=== PATIENT | male | born 1970 | race Caucasian/White ===

== ENCOUNTER 2016-12-07 11:38 | Emergency (ER) | payer MEDICAID ==
--- NOTE | 2016-12-07 11:56 | ED Physician Documentation ---
PD HPI ABD PAIN - Stated complaint Stated Complaint: ABD PX - Chief complaint Chief Complaint: Abd Pain - History obtained from History obtained from: Patient - History of Present Illness Timing - onset: How many days ago (4) Timing - duration: Days Timing - details: Abrupt onset, Still present, Waxing and waning Quality: Aching, Sharp, Pain Location: RLQ Radiation: Right flank Improved by: No: Eating Worsened by: Position, Palpation, Other (walking and hitting bumps, etc.). No: Eating, Moving, Breathing Associated symptoms: Nausea, Vomiting (couple of times with worse pain), Loss of appetite. No: Fever, Dysuria, Hematuria, Chest pain Similar symptoms before: Diagnosis (kidney stone in the past) Recently seen: Not recently seen Review of Systems Constitutional: denies: Fever, Chills Nose: denies: Rhinorrhea / runny nose, Congestion Throat: denies: Sore throat Cardiac: denies: Chest pain / pressure Respiratory: denies: Dyspnea, Cough GI: reports: Abdominal Pain, Nausea. denies: Constipation, Diarrhea : denies: Dysuria, Frequency, Discharge PD PAST MEDICAL HISTORY - Past Medical History Cardiovascular: None Respiratory: None Neuro: None Endocrine/Autoimmune: None GI: None : Kidney stones - Past Surgical History Past Surgical History: No - Present Medications Home Medications: Ambulatory Orders Medication Instructions Recorded Confirmed Naproxen [Naprosyn] 500 mg PO BID #20 tablet 12/07/16 Ondansetron HCl [Zofran] 4 mg PO Q6H PRN #20 tablet 12/07/16 Oxycodone HCl/Acetaminophen 1 - 2 each PO Q6H PRN #30 tablet 12/07/16 [Percocet 5-325 mg Tablet] Tamsulosin [Flomax] 0.4 mg PO DAILY #7 capsule 12/07/16 - Allergies Allergies/Adverse Reactions: Allergies Allergy/AdvReac Type Severity Reaction Status Date / Time No Known Drug Allergies Allergy Verified 11/02/15 12:36 - Social History Does the pt smoke?: No Smoking Status: Never smoker Does the pt drink ETOH?: No Does the pt have substance abuse?: No - Immunizations Immunizations are current?: Yes PD ED PE NORMAL - Vitals Vital signs reviewed: Yes - General General: Alert and oriented X 3, Well developed/nourished - HEENT HEENT: Pharynx benign - Neck Neck: Supple, no meningeal sign, No adenopathy - Cardiac Cardiac: RRR - Respiratory Respiratory: No respiratory distress, Clear bilaterally - Abdomen Abdomen: Normal bowel sounds, Soft, Non distended, Other (tender RLQ with some guarding and percussion tender) - Male Male : Other (no hernia noted) - Rectal Rectal: Deferred - Back Back: Other (moderate right CVA tender) - Derm Derm: Normal color, Warm and dry - Extremities Extremities: No tenderness to palpate, Normal ROM s pain - Neuro Neuro: Alert and oriented X 3, No motor deficit, Normal speech Results - Vitals Vitals: Vital Signs - 24 hr 12/07/16 12/07/16 12/07/16 11:54 13:26 14:39 Temperature 36.6 C Heart Rate 77 76 72 Respiratory 16 16 18 Rate Blood Pressure 157/105 H 154/96 H 154/99 H O2 Saturation 97 96 95 Oxygen O2 Source Room air - Labs Labs: Laboratory Tests 12/07/16 12/07/16 12/07/16 12:35 12:46 12:46 WBC 11.0 H RBC 5.48 Hgb 14.6 Hct 43.7 MCV 79.7 L MCH 26.6 L MCHC 33.4 RDW 14.5 Plt Count 180 MPV 9.0 Neut # 8.2 H Lymph # 1.8 [place] # 0.7 Eos # 0.3 Baso # 0.1 Absolute Nucleated RBC 0.01 Nucleated RBCs 0.1 Sodium 138 Potassium 3.5 Chloride 104 Carbon Dioxide 27 Anion Gap 7.0 BUN 12 Creatinine 0.9 Estimated GFR (MDRD) 92 Glucose 108 H Calcium 9.3 Total Bilirubin 1.4 H AST 22 ALT 26 Alkaline Phosphatase 57 Total Protein 7.8 Albumin 4.3 Globulin 3.5 Albumin/Globulin Ratio 1.2 Lipase 20 L Urine Color YELLOW Urine Clarity CLEAR Urine pH 6.0 Ur Specific [place] 1.015 Urine Protein TRACE Urine Glucose (UA) NEGATIVE Urine Ketones NEGATIVE Urine Occult Blood LARGE H Urine Nitrite NEGATIVE Urine Bilirubin NEGATIVE Urine Urobilinogen 0.2 (NORMAL) Ur Leukocyte Esterase NEGATIVE Urine RBC 6-10 H Urine WBC 0-3 Ur Squamous Epith Cells NONE SEEN Urine Bacteria None Seen Ur Microscopic Review INDICATED Urine Culture Comments NOT INDICATED - Rads (name of study) KUB CT Radiology: Prelim report reviewed, EMP read contemporaneously (8 mm stone right proximal ureter with moderate obstruction. Normal appendix.) PD MEDICAL DECISION MAKING - ED course Complexity details: reviewed results, re-evaluated patient (improved enough with pain meds here in ED. Feels comfortable enough to head home. ), considered differential, d/w patient, d/w business analyst consultant (Urology in [place], who will see patient in next couple of days. ) Departure - Departure Disposition: Home, Self Care Clinical Impression: Ureterolithiasis, Right sided abdominal pain Condition: Stable Record reviewed to determine appropriate education?: Yes Instructions: ED Stone Renal W Colic Prescriptions: Tamsulosin [Flomax] 0.4 mg PO DAILY #7 capsule Naproxen [Naprosyn] 500 mg PO BID #20 tablet Oxycodone HCl/Acetaminophen [Percocet 5-325 mg Tablet] 1 - 2 each PO Q6H PRN # 30 tablet PRN Reason: Pain Ondansetron HCl [Zofran] 4 mg PO Q6H PRN #20 tablet PRN Reason: Nausea / Vomiting Comments: Call [facility] [facility] [phone] for an appt with available Urologist (Dr. Talbert was sourcing consultant, but can be with any of them). Take Naproxen twice daily for pain. Tamsulosin daily to help try to relax the ureter. Zofran if needed for nausea. Percocet for pain. Follow up with Urology a their next available appt, or the timing that they give you. Return if severe pain again. Discharge Date/Time: 12/07/16 14:40
[2016-12-07] MEDS ORDERED: ONDANSETRON 4 MG/2 ML VIAL IVP STA (12:21)
[2016-12-07] MEDS ORDERED: HYDROmorphone 1 MG/ML SYRINGE IVP STA (12:21)
[2016-12-07] MEDS ORDERED: SODIUM CHLORIDE 0.9% 1,000 ML IV ONE (12:21)
[2016-12-07] MEDS ORDERED: HYDROmorphone 1 MG/ML SYRINGE ONE (12:27)
[2016-12-07] MEDS ORDERED: ONDANSETRON 4 MG/2 ML VIAL ONE (12:27)
[2016-12-07 12:55] LABS: BASOPHILS # (AUTO) 0.1 10^3/uL (0.0-0.1); BASOPHILS % (AUTO) 0.7 %; EOSINOPHILS # (AUTO) 0.3 10^3/uL (0.0-0.7); EOSINOPHILS % (AUTO) 2.5 %; HCT - HEMATOCRIT 43.7 % (42.0-52.0); HGB - HEMOGLOBIN 14.6 g/dL (14.0-18.0); LYMPHOCYTES # (AUTO) 1.8 10^3/uL (1.5-3.5); LYMPHOCYTES % (AUTO) 16.2 %; MEAN CORPUSCULAR HEMOGLOBIN 26.6 pg (27.0-31.0); MEAN CORPUSCULAR HGB CONC 33.4 g/dL (32.0-36.0); MEAN CORPUSCULAR VOLUME 79.7 fL (80.0-94.0); MONOCYTES # (AUTO) 0.7 10^3/uL (0.0-1.0); MONOCYTES % (AUTO) 6.4 %; NEUTROPHILS # (AUTO) 8.2 10^3/uL (1.5-6.6); NEUTROPHILS % (AUTO) 74.2 %; NUCLEATED RED BLOOD CELLS AUTO 0.1 /100WBC; RED BLOOD COUNT 5.48 10^6/uL (4.70-6.10); RED CELL DISTRIBUTION WIDTH 14.5 % (12.0-15.0)
[2016-12-07 13:03] LABS: BILIRUBIN,URINE NEGATIVE (NEGATIVE)
[2016-12-07 13:07] LABS: ALBUMIN/GLOBULIN RATIO 1.2 (1.0-2.2); BILIRUBIN,TOTAL 1.4 mg/dL (0.2-1.0); CALCIUM 9.3 mg/dL (8.5-10.3); CREATININE 0.9 mg/dL (0.6-1.2); POTASSIUM 3.5 mmol/L (3.5-5.0); TOTAL PROTEIN 7.8 g/dL (6.7-8.2)
[2016-12-07 13:10] LABS: UA w/ MICROSCOPIC CHARGE YES
[2016-12-07 13:11] LABS: UR CULTURE IF IND NOT INDICATED; WBC,URINE 0-3 /HPF (0-3)
[2016-12-07] MEDS ORDERED: KETOROLAC 60 MG/2 ML VIAL IVP STA (13:45)
[2016-12-07] MEDS ORDERED: KETOROLAC 30 MG/ML VIAL ONE (13:47)
--- NOTE | 2016-12-07 13:55 | CT Preliminary Report ---
Exam: CT KUB Impression: 8mm obstructing stone within the right proximal ureter. At least 3 nonobstructing calculi within the left kidney. [facility] SITE ID: [id number]
--- NOTE | 2016-12-07 13:58 | CT Report ---
EXAM: CT ABDOMEN AND PELVIS (CT KUB) EXAM DATE: 12/07/2016 01:19 PM. CLINICAL HISTORY: Right abd/flank pain for 2-3 days. COMPARISONS: None. TECHNIQUE: Routine axial helical CT imaging was performed through the abdomen and pelvis without IV c ontrast. Reconstructions: Coronal and sagittal. In accordance with CT protocol optimization, one or more of the following dose reduction techniques w ere utilized for this exam: automated exposure control, adjustment of mA and/or KV based on patient s ize, or use of iterative reconstructive technique. FINDINGS: The lung bases are without evidence of a mass or infiltrate. The liver, spleen, pancreas, and adrenal glands demonstrate a normal noncontrast CT appearance. There is a 8 mm calculus in the right proximal ureter causing mild hydronephrosis, mild proximal hydrouret er and mild perinephric fat stranding. At least 3 nonobstructing calculi are noted within the left kidney. The largest measures 8 mm (image 73 of series 5). There is no left-sided hydroureter. No bladder calculi are identified. The appendix is normal in appearance. There are no dilated loops of bowel to suggest the presence of an obstructio n. A few small diverticuli are seen involving the sigmoid colon. There is no fat stranding or fluid c ollection to suggest the presence of diverticulitis. There are degenerative changes of the thoracic a nd lumbar spine. Impression: 8mm obstructing stone within the right proximal ureter. At least 3 nonobstructing calculi within the left kidney. [facility] Referring Provider Line: [phone] SITE ID: [id number]
[2016-12-07 14:39] VITALS: BP 154/99
== END 2016-12-07 14:40 | disposition home or self-care (01) ==
LOC: ED 11:38
DX: N20.1 Calculus of ureter (principal); R10.11 Right upper quadrant pain
CPT/HCPCS: 36415; 74176; 80053; 81001; 83690; 85025; 96374; 96375; 99283; 99284; J1170; 81003; 87086

== ENCOUNTER 2017-09-12 13:29 | Outpatient (CLI) | payer MEDICAID | END 2017-09-12 13:30 | disposition home or self-care (01) | LOC: SC 13:29 | PROVIDERS: ATTEND Internal Medicine Pulmonary Disease | DX: G47.33 Obstructive sleep apnea (adult) (pediatric) (principal) | CPT/HCPCS: 99203; 99212 ==

== ENCOUNTER 2017-11-09 22:12 | Outpatient (CLI) | payer MEDICAID | END 2017-11-09 22:13 | disposition home or self-care (01) | LOC: SC 22:12 | PROVIDERS: ATTEND Internal Medicine Pulmonary Disease | DX: G47.33 Obstructive sleep apnea (adult) (pediatric) (principal); G47.61 Periodic limb movement disorder; R00.1 Bradycardia, unspecified | CPT/HCPCS: 95811 ==

== ENCOUNTER 2017-12-13 09:08 | Outpatient (CLI) | payer MEDICAID | END 2017-12-13 09:09 | disposition home or self-care (01) | LOC: SC 09:08 | PROVIDERS: ATTEND Nurse Practitioner Family | DX: G47.33 Obstructive sleep apnea (adult) (pediatric) (principal); G47.61 Periodic limb movement disorder; R00.1 Bradycardia, unspecified | CPT/HCPCS: 99212; 99215 ==

== ENCOUNTER 2018-02-26 14:55 | Outpatient (CLI) | payer MEDICAID | END 2018-02-26 14:56 | disposition home or self-care (01) | LOC: SC 14:55 | PROVIDERS: ATTEND Nurse Practitioner Family | DX: G47.33 Obstructive sleep apnea (adult) (pediatric) (principal) | CPT/HCPCS: 99212; 99214 ==

== ENCOUNTER 2019-09-09 13:51 | Outpatient (CLI) | payer OTHER | END 2019-09-09 13:52 | disposition home or self-care (01) | LOC: COV 13:51 | PROVIDERS: ATTEND Family Medicine | DX: R50.9 Fever, unspecified (principal) | CPT/HCPCS: 81599 ==

== ENCOUNTER 2019-11-25 07:20 | Outpatient (CLI) | payer OTHER ==
[2019-11-25 15:36] LABS: BASOPHILS # (AUTO) 0.1 10^3/uL (0.0-0.1); BASOPHILS % (AUTO) 0.6 %; EOSINOPHILS # (AUTO) 0.4 10^3/uL (0.0-0.7); EOSINOPHILS % (AUTO) 4.7 %; HGB - HEMOGLOBIN 15.3 g/dL (14.0-18.0); LYMPHOCYTES # (AUTO) 1.5 10^3/uL (1.5-3.5); LYMPHOCYTES % (AUTO) 18.9 %; MEAN CORPUSCULAR HEMOGLOBIN 27.5 pg (27.0-31.0); MEAN CORPUSCULAR HGB CONC 32.1 g/dL (32.0-36.0); MEAN CORPUSCULAR VOLUME 85.6 fL (80.0-94.0); MEAN PLATELET VOLUME 11.7 fL (7.4-11.4); MONOCYTES # (AUTO) 0.5 10^3/uL (0.0-1.0); MONOCYTES % (AUTO) 6.7 %; NEUTROPHILS # (AUTO) 5.3 10^3/uL (1.5-6.6); NEUTROPHILS % (AUTO) 68.7 %; PLT - PLATELET COUNT 199 10^3/uL (130-450); RED BLOOD COUNT 5.56 10^6/uL (4.70-6.10); RED CELL DISTRIBUTION WIDTH 14.2 % (12.0-15.0); WHITE BLOOD COUNT 7.7 x10^3/uL (4.8-10.8)
[2019-11-25 15:49] LABS: ALBUMIN 4.6 g/dL (3.2-5.5); ALBUMIN/GLOBULIN RATIO 1.3 (1.0-2.2); ALKALINE PHOSPHATASE 61 IU/L (42-121); ALT ALANINE AMINOTRANSFERASE 18 IU/L (10-60); AST ASPARTATE AMINOTRANSFERASE 17 IU/L (10-42); BUN - BLOOD UREA NITROGEN 12 mg/dL (6-20); CALCIUM 9.5 mg/dL (8.5-10.3); CARBON DIOXIDE - CO2 29 mmol/L (21-32); CHLORIDE 102 mmol/L (101-111); CHOL/HDL RATIO 3.6 (<5.0); CHOLESTEROL 128 mg/dL; CREATININE 0.9 mg/dL (0.6-1.2); GLUCOSE 95 mg/dL (70-100); HDL CHOLESTEROL 36 mg/dL; LDL CHOLESTEROL,CALCULATED 76 mg/dL; LDL/HDL RATIO 2.1 (<3.6); SODIUM 140 mmol/L (135-145); TOTAL PROTEIN 8.1 g/dL (6.7-8.2); VLDL CHOLESTEROL 16 mg/dL
== END 2019-11-25 07:21 | disposition home or self-care (01) ==
LOC: LAB.S 07:20
PROVIDERS: ATTEND Registered Nurse
DX: I10 Essential (primary) hypertension (principal); G47.33 Obstructive sleep apnea (adult) (pediatric); F41.8 Other specified anxiety disorders; Z87.442 Personal history of urinary calculi; F90.0 Attention-deficit hyperactivity disorder, predominantly inattentive type; E66.01 Morbid (severe) obesity due to excess calories
CPT/HCPCS: 36415; 80053; 80061; 83721; 84443; 85025

== ENCOUNTER 2019-12-03 17:21 | Outpatient (CLI) | payer OTHER ==
[2019-12-03 17:27] LABS: MUDS CUTOFF CONCENTRATIONS CUTOFF CONC BELOW:
[2019-12-03 20:12] LABS: AMPHETAMINE SCREEN,URINE POSITIVE (NEGATIVE); BENZODIAZEPINES SCREEN, URINE NEGATIVE (NEGATIVE); COCAINE SCREEN URINE NEGATIVE (NEGATIVE); METHADONE SCREEN, URINE NEGATIVE (NEGATIVE); METHAMPHETAMINES SCREEN, URINE NEGATIVE (NEGATIVE); OPIATE SCREEN, URINE NEGATIVE (NEGATIVE); OXYCODONE SCREEN, URINE NEGATIVE (NEGATIVE); PROPOXYPHENE SCREEN, URINE NEGATIVE (NEGATIVE); TRICYCLIC ANTIDEPRESSANT,URINE NEGATIVE (NEGATIVE)
== END 2019-12-03 17:22 | disposition home or self-care (01) ==
LOC: LAB.S 17:21
PROVIDERS: ATTEND Registered Nurse
DX: Z79.899 Other long term (current) drug therapy (principal)
CPT/HCPCS: 80306

== ENCOUNTER 2020-05-28 08:00 | Outpatient (CLI) | payer OTHER ==
[2020-05-28 17:46] LABS: MUDS CUTOFF CONCENTRATIONS CUTOFF CONC BELOW:
[2020-05-28 18:03] LABS: AMPHETAMINE SCREEN,URINE POSITIVE (NEGATIVE); BENZODIAZEPINES SCREEN, URINE POSITIVE (NEGATIVE); COCAINE SCREEN URINE NEGATIVE (NEGATIVE); METHADONE SCREEN, URINE NEGATIVE (NEGATIVE); METHAMPHETAMINES SCREEN, URINE NEGATIVE (NEGATIVE); OPIATE SCREEN, URINE NEGATIVE (NEGATIVE); OXYCODONE SCREEN, URINE NEGATIVE (NEGATIVE); PROPOXYPHENE SCREEN, URINE NEGATIVE (NEGATIVE); TRICYCLIC ANTIDEPRESSANT,URINE NEGATIVE (NEGATIVE)
== END 2020-05-28 23:59 | disposition home or self-care (01) ==
LOC: LAB.R 08:00
PROVIDERS: ATTEND Registered Nurse
DX: Z79.899 Other long term (current) drug therapy (principal)
CPT/HCPCS: 80306

== ENCOUNTER 2021-01-07 09:37 | Emergency (ER) | payer OTHER ==
--- NOTE | 2021-01-07 10:43 | ED Physician Documentation ---
PD HPI MALE - Stated complaint Stated Complaint: UNABLE TO URINATE - Chief complaint Chief Complaint: Abd Pain - History obtained from History obtained from: Patient - Additional information Additional information: Patient comes emergency department chief complaint of urinary retention that started yesterday evening. 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 He states he has a history of benign prostatic hypertrophy and that from time to time he does retain urine. He states he urinated before going to bed last night but since then, has not been able to produce any urine. States he has had some pressure in the suprapubic area. No other complaints at this time. Review of Systems Ten Systems: 10 systems reviewed and negative Constitutional: reports: Reviewed and negative Eyes: reports: Reviewed and negative Ears: reports: Reviewed and negative Nose: reports: Reviewed and negative Throat: reports: Reviewed and negative Cardiac: reports: Reviewed and negative Respiratory: reports: Reviewed and negative GI: reports: Reviewed and negative : reports: Unable to Void, Incontinent (Mild dribbling on and off). denies: Dysuria, Frequency Skin: reports: Reviewed and negative Musculoskeletal: reports: Reviewed and negative Neurologic: reports: Reviewed and negative Psychiatric: reports: Reviewed and negative Endocrine: reports: Reviewed and negative Immunocompromised: reports: Reviewed and negative PD PAST MEDICAL HISTORY - Past Medical History Past Medical History: Yes Cardiovascular: Hypertension Respiratory: None Endocrine/Autoimmune: None GI: None : Kidney stones Musculoskeletal: Gout - Past Surgical History Past Surgical History: No - Present Medications Home Medications: Ambulatory Orders Medication Instructions Recorded Confirmed Lisdexamfetamine Dimesylate 70 mg PO DAILY 01/07/21 01/07/21 [Vyvanse] Lisinopril [Zestril] 20 mg PO DAILY 01/07/21 01/07/21 - Allergies Allergies/Adverse Reactions: Allergies Allergy/AdvReac Type Severity Reaction Status Date / Time No Known Drug Allergies Allergy Verified 01/07/21 09:52 - Social History Does the pt smoke?: No Smoking Status: Never smoker Does the pt drink ETOH?: No Does the pt have substance abuse?: No - Immunizations Immunizations are current?: Yes PD ED PE NORMAL - Vitals Vital signs reviewed: Yes - General General: Alert and oriented X 3, No acute distress, Well developed/nourished - HEENT HEENT: Atraumatic, PERRL, EOMI, Moist mucous membranes - Neck Neck: Supple, no meningeal sign - Respiratory Respiratory: No respiratory distress - Abdomen Abdomen: Soft, Non distended, Other (Mild suprapubic tenderness and fullness.) - Male Male : Other (Very firm mass noted in the patient's glands, surrounding the urethral area. Nonmobile. Daily passes with some discomfort and difficulty and yellow, cloudy urine is obtained) - Derm Derm: Normal color, Warm and dry, No rash - Extremities Extremities: No deformity, No edema - Neuro Neuro: Alert and oriented X 3 - Psych Psych: Normal mood, Normal affect Results - Vitals Vitals: Vital Signs - 24 hr 01/07/21 01/07/21 09:42 11:30 Temperature 36.3 C L 37.1 C Heart Rate 96 85 Respiratory 16 16 Rate Blood Pressure 145/91 H 143/96 H O2 Saturation 100 98 Oxygen O2 Source Room air - Labs Labs: Laboratory Tests 01/07/21 10:39 Urine Color YELLOW Urine Clarity CLOUDY Urine pH 7.5 Ur Specific [place] 1.020 Urine Protein TRACE Urine Glucose (UA) NEGATIVE Urine Ketones NEGATIVE Urine Occult Blood SMALL H Urine Nitrite NEGATIVE Urine Bilirubin NEGATIVE Urine Urobilinogen 0.2 (NORMAL) Ur Leukocyte Esterase SMALL H Urine RBC 6-10 H Urine WBC 6-10 H Ur Squamous Epith Cells MOD Squamous H Urine Crystals 11-25 Triple Phos Amorphous Sediment Few Urine Bacteria Moderate H Ur Microscopic Review INDICATED Urine Culture Comments NOT INDICATED PD MEDICAL DECISION MAKING - ED course Complexity details: reviewed results, re-evaluated patient, d/w patient ED course: Coud Espinoza was placed without bloody residue and urinalysis was sent. I did assist the nurse in placing the catheter, and found that it was initially hard to pass through the firm mass at the distal end of pt's penis. However, cathete r passed, and mass seemed to dissipate. Once in the bladder, about 100 cc of yellow, sediment-laden urine was obtained, then flow stopped. Pt felt that he still had a fairly full bladder, and scan had showed >200cc. Catheter was slowly withdrawn, and found to be clogged with copious sand-like sediment. Pt was then able to urinate. Mass at penile tip had completely resolved, and pt was able to urinate, so catheter was not replaced. I suspected the "mass" was a collection of the sediment, which had been blocking the way. I have recommended that the pt follow up with urology. Departure - Departure Disposition: 01 Home, Self Care Clinical Impression: Urinary retention, Calculus in urethra BPH (benign prostatic hyperplasia) Qualifiers: Lower urinary tract symptom presence: symptoms present Lower urinary tract symptom detail: urinary retention Qualified Code(s): N40.1 - Benign prostatic hyperplasia with lower urinary tract symptoms Condition: Stable Instructions: ED Retention Urinary Male Follow-Up: Atiya Perry MD [Physician No Access] - Discharge Date/Time: 01/07/21 11:31
[2021-01-07 10:47] LABS: BILIRUBIN,URINE NEGATIVE (NEGATIVE); GLUCOSE, URINE (UA) NEGATIVE (NEGATIVE); KETONES,URINE (UA) NEGATIVE (NEGATIVE); LEUKOCYTE ESTERASE, URINE SMALL (NEGATIVE); NITRITE,URINE NEGATIVE (NEGATIVE); OCCULT BLOOD,URINE SMALL (NEGATIVE); PH,URINE 7.5 PH (5.0-7.5); PROTEIN,URINE TRACE mg/dL (NEGATIVE); UROBILINOGEN,URINE 0.2 (NORMAL) E.U./dL (NORMAL)
[2021-01-07 11:05] LABS: CLARITY,URINE CLOUDY (CLEAR)
[2021-01-07 11:17] LABS: BACTERIA,URINE Moderate /HPF (None Seen); SQUAMOUS EPITHELIAL CELL,UR MOD Squamous (<= Few)
[2021-01-07 11:18] LABS: AMORPHOUS SEDIMENT,UR Few /LPF; CRYSTALS,URINE 11-25 Triple Phos /LPF
[2021-01-07 11:32] VITALS: BP 143/96
== END 2021-01-07 11:31 | disposition home or self-care (01) ==
LOC: ED 09:37
DX: N40.1 Benign prostatic hyperplasia with lower urinary tract symptoms (principal); R33.8 Other retention of urine; N21.1 Calculus in urethra; I10 Essential (primary) hypertension
CPT/HCPCS: 51702; 81001; 81003; 87086; 99283; 99284

== ENCOUNTER 2021-03-12 18:47 | Outpatient (CLI) | payer OTHER ==
--- NOTE | 2021-03-13 15:50 | Ultrasound Report ---
PROCEDURE: Retroperitoneal INDICATIONS: URINARY OBSTRUCTION TECHNIQUE: Real-time scanning was performed of the retroperitoneal organs, with image documentation. COMPARISON: Correlation is made with prior CT KUB, 12/07/2016 FINDINGS: Kidneys: Kidneys are normal in size. Right kidney measures 11.2 cm long; left kidney measures 13.3 cm long. Right renal cortical thickness is 2.2 cm; left renal cortical thickness is 2 cm. No solid masses are seen. On the left, moderate to prominent hydronephrosis is seen. Multiple small stones are seen, the larges t inferiorly measuring up to 1 cm. The prevoid bladder volume is 338 cc. The post void bladder volume is 198 cc. Both ureteral jets can be seen. The prostate measures 3 x 3 x 4.2 cm. IMPRESSION: Moderate to prominent left kidney hydronephrosis is seen. Multiple obstructing left-sided kidney stones are seen. Moderate post residual, 198 cc. Reviewed by: Domenic Stewart MD on 03/13/2021 2:49 PM [facility] Approved by: Domenic Stewart MD on 03/13/2021 2:49 PM [facility] Station ID: [id number]
== END 2021-03-12 18:48 | disposition home or self-care (01) ==
LOC: DI 18:47
PROVIDERS: ATTEND Registered Nurse
DX: N13.2 Hydronephrosis with renal and ureteral calculous obstruction (principal)

== ENCOUNTER 2021-05-09 07:45 | Outpatient (CLI) | payer OTHER ==
--- NOTE | 2021-05-10 00:05 | CT Report ---
PROCEDURE: Abdomen/Pelvis WO INDICATIONS: URINARY OBSTRUCTION TECHNIQUE: Noncontrast 5 mm thick sections acquired from the diaphragms to the symphysis. 5 mm coronal and sagi ttal reformats were then performed. For radiation dose reduction, the following was used: automated exposure control, adjustment of mA and/or kV according to patient size. COMPARISON: Renal ultrasound 03/12/2021. CT KUB 12/07/2018. FINDINGS: Image quality: Excellent. ABDOMEN: Lung bases: Lung bases are clear. Heart size is normal. Tiny subcutaneous nodule or skin thickenin g in the region of the xiphoid process. Solid organs: Liver and spleen are normal in size. Gallbladder is nondistended. Likely tiny calcifi ed gallstone. Pancreas is normal in contours. No adrenal nodules. Kidneys are normal in size. There is mild left kidney hydronephrosis. There is an obstructing calculu s at the left UVJ measuring 0.9 x 0.7 cm, (). No right-sided hydronephrosis. Additional nonobstru cting calculus at the inferior pole left kidney measuring 1.5 x 1.4 cm. Tiny cortical calcification l eft kidney is unchanged compared to 2017. Peritoneum and bowel: Unenhanced bowel loops demonstrate normal wall thickness and caliber. No reti cular cyst. Normal appendix. No free fluid or air. Nodes and vessels: No retroperitoneal or mesenteric adenopathy by size criteria. Aorta and inferior vena cava are normal in caliber. Miscellaneous: No ventral hernias. PELVIS: Genitourinary: Calcific density at the right posterior bladder. Miscellaneous: No inguinal hernias or adenopathy. Bones: No suspicious bony lesions. Moderate DDD. Right L5 disc protrusion. No vertebral body [place] fractures. IMPRESSION: 1. Mild to moderate left kidney hydronephrosis is again seen. 2. Obstructing calculus at the left UVJ measuring 0.9 x 0.7 cm. 3. Additional nonobstructing left kidney stone. Suspect calcific debris in the bladder. 4. Probable small gallstone. Reviewed by: Sergio Forte MD on 05/10/2021 12:03 AM PST Approved by: Sergio Forte MD on 05/10/2021 12:03 AM PST Station ID: [id number]
== END 2021-05-09 07:46 | disposition home or self-care (01) ==
LOC: DI 07:45
PROVIDERS: ATTEND Registered Nurse
DX: N13.2 Hydronephrosis with renal and ureteral calculous obstruction (principal)

== ENCOUNTER 2021-05-13 08:00 | Outpatient (CLI) | payer OTHER | END 2021-05-13 23:59 | disposition home or self-care (01) | LOC: LAB.S 08:00 | PROVIDERS: ATTEND Physician Assistant Medical | DX: R07.0 Pain in throat (principal); R09.81 Nasal congestion; Z20.822 Contact with and (suspected) exposure to COVID-19 | CPT/HCPCS: 87070; 87077 ==

== ENCOUNTER 2022-05-11 07:27 | Outpatient (CLI) | payer OTHER ==
[2022-05-11 15:08] LABS: BASOPHILS # (AUTO) 0.1 10^3/uL (0.0-0.1); BASOPHILS % (AUTO) 0.7 %; EOSINOPHILS # (AUTO) 0.4 10^3/uL (0.0-0.7); EOSINOPHILS % (AUTO) 4.2 %; HCT - HEMATOCRIT 46.9 % (42.0-52.0); LYMPHOCYTES # (AUTO) 1.5 10^3/uL (1.5-3.5); LYMPHOCYTES % (AUTO) 17.9 %; MEAN CORPUSCULAR HEMOGLOBIN 27.7 pg (27.0-31.0); MEAN CORPUSCULAR VOLUME 86.7 fL (80.0-94.0); MEAN PLATELET VOLUME 11.2 fL (7.4-11.4); MONOCYTES # (AUTO) 0.7 10^3/uL (0.0-1.0); MONOCYTES % (AUTO) 7.8 %; NEUTROPHILS # (AUTO) 5.8 10^3/uL (1.5-6.6); PLT - PLATELET COUNT 209 10^3/uL (130-450); RED BLOOD COUNT 5.41 10^6/uL (4.70-6.10); RED CELL DISTRIBUTION WIDTH 13.5 % (12.0-15.0); WHITE BLOOD COUNT 8.3 x10^3/uL (4.8-10.8)
[2022-05-11 15:29] LABS: ALBUMIN 4.3 g/dL (3.2-5.5); ALBUMIN/GLOBULIN RATIO 1.3 (1.0-2.2); ALKALINE PHOSPHATASE 60 IU/L (42-121); ALT ALANINE AMINOTRANSFERASE 22 IU/L (10-60); AST ASPARTATE AMINOTRANSFERASE 19 IU/L (10-42); BILIRUBIN,TOTAL 1.1 mg/dL (0.2-1.0); BUN - BLOOD UREA NITROGEN 15 mg/dL (6-20); CALCIUM 9.2 mg/dL (8.5-10.3); CARBON DIOXIDE - CO2 28 mmol/L (21-32); CHLORIDE 104 mmol/L (101-111); CHOL/HDL RATIO 4.5 (<5.0); CHOLESTEROL 117 mg/dL; GFR - MDRD 79 (>89); GLUCOSE 99 mg/dL (70-100); HDL CHOLESTEROL 26 mg/dL; LDL CHOLESTEROL,CALCULATED 75 mg/dL; LDL/HDL RATIO 2.9 (<3.6); SODIUM 136 mmol/L (135-145); TOTAL PROTEIN 7.7 g/dL (6.7-8.2); TRIGLYCERIDES 81 mg/dL; VLDL CHOLESTEROL 16 mg/dL
[2022-05-11 15:42] LABS: THYROID STIMULATING HORMONE 1.46 uIU/mL (0.34-5.60)
== END 2022-05-11 07:28 | disposition home or self-care (01) ==
LOC: LAB.S 07:27
PROVIDERS: ATTEND Physician Assistant Medical
DX: Z79.899 Other long term (current) drug therapy (principal); Z13.220 Encounter for screening for lipoid disorders; Z12.5 Encounter for screening for malignant neoplasm of prostate; Z13.29 Encounter for screening for other suspected endocrine disorder
CPT/HCPCS: 36415; 80053; 80061; 83721; 84153; 84443; 85025

== ENCOUNTER 2023-10-04 16:44 | Outpatient (CLI) | payer OTHER ==
--- NOTE | 2023-10-06 08:36 | Ultrasound Report ---
PROCEDURE: Extremity Soft Tissue Limited INDICATIONS: L UPPER LIMB MASS TECHNIQUE: Real-time scanning was performed of the left forearm, with image documentation. COMPARISON: None. FINDINGS: Focused ultrasound examination of left forearm at patient's reported area of palpable lump shows a well-circumscribed hypoechoic and solid appearing nodule measures 1.9 x 1.2 x 2.2 cm in size within subcutaneous soft tissue and show internal vascularity. The lesion is noncompressible. IMPRESSION: 1.9 x 1.2 x 2.2 cm solid and vascular lesion in left forearm soft tissue which may repre sent benign or malignant soft tissue mass. Excision or biopsy can be done for more definitive diagnos is. Reviewed by: Leroy Garcia MD on 10/06/2023 8:35 AM PDT Approved by: Leroy Garcia MD on 10/06/2023 8:35 AM PDT Station ID: [id number]
== END 2023-10-04 16:45 | disposition home or self-care (01) ==
LOC: DI 16:44
PROVIDERS: ATTEND Internal Medicine
DX: R22.32 Localized swelling, mass and lump, left upper limb (principal)